=== PATIENT | male | born 1965 | race Caucasian/White ===

== ENCOUNTER 2017-11-30 07:42 | Emergency (ER) | payer BC ==
[2017-11-30 07:46] VITALS: BP 138/81
--- NOTE | 2017-11-30 08:46 | EDM.PDOC ---
ED HPI GENERAL MEDICAL PROBLEM - General Chief Complaint: Eye Problems Stated Complaint: eye pain and swelling Time Seen by Provider: 11/30/17 08:25 - History of Present Illness INITIAL COMMENTS - FREE TEXT/NARRATIVE: Pablo is a 52 year old male who presents to the ED w/ c/o eye redness and swelling. 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 Does report that for some of the time he did not have protective eye wear on. He does report that he did quite a bit of welding, but had a welding helmet on for a majority of it. He reports he woke up about 3 am and his eyes hurt, felt scratchy, and his lids were swollen. He reports sensitivity to light and difficulty opening his eyes. He denies any changes in visual acuity. Reports eyes are very reddened and irritated. He denies noticing any metal or anything entering his eye. He has no other complaints. Onset: Today Onset Date: 11/30/17 Onset Time: 03:00 Duration: Constant Location: Reports: Other (bilateral eyes) Quality: Reports: Ache, Burning Severity: Moderate Improves with: Reports: Cold Therapy Worsens with: Reports: Other (light ) Associated Symptoms: Reports: No Other Symptoms. Denies: Confusion, Chest Pain , Cough, cough w sputum, Diaphoresis, Fever/Chills, Headaches, Loss of Appetite , Malaise, Nausea/Vomiting, Rash, Seizure, Shortness of Breath, Syncope, Weakness Treatments STAFF ATTORNEY: Reports: Cold Therapy Bilateral Eye Pain Score (Numeric/FACES): 6 - Related Data Allergies Allergy/AdvReac Type Severity Reaction Status Date / Time cyclobenzaprine HCl Allergy Nausea Verified 11/30/17 07:48 [From Flexeril] phenylephrine HCl Allergy Tachycardia Verified 11/30/17 07:48 [From Contac-D Cold (PE)] Bee sting Allergy Airway Uncoded 05/29/16 07:01 Tightness Home Meds: Home Meds DULoxetine [Cymbalta] 60 mg PO DAILY 02/09/14 [History] Lisinopril 10 mg PO DAILY 02/09/14 [History] Simvastatin [Zocor] 40 mg PO BEDTIME 02/09/14 [History] rOPINIRole HCl [Requip] 1 mg PO BEDTIME 02/09/14 [History] Aspirin [Halfprin] 81 mg PO DAILY 08/17/14 [History] Dapagliflozin/Metformin HCl [Xigduo Xr 5 mg-1,000 mg Tablet] 2 tab PO DAILY 10/26 [History] Insulin Aspart [NovoLOG] 35 - 55 unit SUBCUT TIDM 08/17/14 [History] Insulin Detemir [Levemir] 45 units SUBCUT DAILY 08/17/14 [History] Naloxegol Oxalate [Movantik] 25 mg PO DAILY 11/30/17 [History] Pregabalin [Lyrica] 150 mg PO TID 11/30/17 [History] Past Medical History Cardiovascular History: Reports: Hypertension Genitourinary History: Reports: Other (See Below) Other Genitourinary History: URETHRAL STRICTURE Musculoskeletal History: Reports: Back Pain, Chronic - Infectious Disease History Infectious Disease History: Reports: MRSA - Past Surgical History Musculoskeletal Surgical History: Reports: Other (See Below) Social & Family History - Family History Family Medical History: Noncontributory - Tobacco Use Smoking Status *Q: Never Smoker - Caffeine Use Caffeine Use: Reports: None - Recreational Drug Use Recreational Drug Use: No - Living Situation & Occupation Living situation: Reports: , with Spouse Occupation: Employed ED ROS GENERAL - Review of Systems Review Of Systems: ROS reveals no pertinent complaints other than HPI. ED EXAM GENERAL W FULL EYE - Physical Exam Exam: See Below Exam Limited By: No Limitations General Appearance: Alert, WD/WN, No Apparent Distress Eye Exam: Bilateral Eye: Conjunctival Injection, EOMI, PERRL Eyelids: Bilateral: Edema Conjunctiva & Sclera: Bilateral: Conjunctival Edema, Injected Cornea Exam: Bilateral: Normal Appearance Extraocular Movements: Bilateral: Intact Pupils: Normal Accommodation Pupillary Size: Bilateral: 4 mm Pupillary Reaction: Bilateral: Brisk Course - Vital Signs Last Recorded V/S: Last Vital Signs Temp 97.0 F 11/30/17 07:42 Pulse 74 11/30/17 07:42 Resp 16 11/30/17 07:42 BP 138/81 11/30/17 07:42 Pulse Ox 94 L 11/30/17 07:42 Departure - Departure Time of Disposition: 08:41 Disposition: Home, Self-Care 01 Condition: Good Clinical Impression: Photokeratitis of both eyes - Discharge Information Instructions: Ultraviolet Keratitis, [id number] Referrals: Sunil,Ania L, PA-C [Primary Care Provider] - Forms: ED Department Discharge Additional Instructions: Lubricating eye drops as needed to keep eyes moisturized (refresh, systane, etc. ). Can use drops or ointment. Tylenol or ibuprofen as needed for pain Keep cool moist cloth on eyes until pain and redness resolves Stay indoors and wear sunglasses to help with light sensitivity Do not rub your eyes No contact lenses Follow up with geological e logger Friday if symptoms have not improved
== END 2017-11-30 08:54 | disposition home or self-care (01) ==
LOC: CC.ED 07:42
DX: H16.133 Photokeratitis, bilateral (principal); I10 Essential (primary) hypertension; Z88.8 Allergy status to other drugs, medicaments and biological substances; Z91.030 Bee allergy status; Z79.899 Other long term (current) drug therapy; Z79.82 Long term (current) use of aspirin; Z86.14 Personal history of Methicillin resistant Staphylococcus aureus infection; Z79.4 Long term (current) use of insulin
CPT/HCPCS: 99282

== ENCOUNTER 2018-06-13 17:14 | Emergency (ER) | payer BC ==
[2018-06-13] MEDS ORDERED: Acetaminophen/HYDROcodone 325-5 MG Tab PO ONE (17:15)
[2018-06-13] MEDS ORDERED: Orphenadrine 100 MG Tab.ER PO ONE (17:15)
[2018-06-13 17:24] VITALS: BP 116/63
--- NOTE | 2018-06-13 17:48 | EDM.PDOC ---
ED HPI GENERAL MEDICAL PROBLEM - General Chief Complaint: Back Pain or Injury Stated Complaint: fell on ice onto a bucket/back pain Time Seen by Provider: 06/13/18 17:24 Source of Information: Reports: Patient History Limitations: Reports: No Limitations - History of Present Illness INITIAL COMMENTS - FREE TEXT/NARRATIVE: slipped and fell onto a bucket and is having pain in the back rib area. He continued to work on his pickup for about an additional 90 minutes before coming in to be evaluated. He states that pain starts in the mid lateral back area where he contacted the bucket and then it radiates upward to the top of his back. No numbness or tingling noted. No weakness to upper or lower extremities. He denies pain to any other area. He denies hitting his head or any neck pain. Onset: Today Location: Reports: Back Quality: Reports: Sharp Worsens with: Reports: Breathing Associated Symptoms: Reports: No Other Symptoms Left Upper Back Pain Score (Numeric/FACES): 6 - Related Data Allergies Allergy/AdvReac Type Severity Reaction Status Date / Time cyclobenzaprine HCl Allergy Nausea Verified 06/13/18 17:25 [From Flexeril] phenylephrine HCl Allergy Tachycardia Verified 06/13/18 17:25 [From Contac-D Cold (PE)] Bee sting Allergy Airway Uncoded 06/13/18 17:25 Tightness Home Meds: Home Meds DULoxetine [Cymbalta] 60 mg PO DAILY 02/09/14 [History] Lisinopril 10 mg PO DAILY 02/09/14 [History] Simvastatin [Zocor] 40 mg PO BEDTIME 02/09/14 [History] rOPINIRole HCl [Requip] 1 mg PO BEDTIME 02/09/14 [History] Aspirin [Halfprin] 81 mg PO DAILY 08/17/14 [History] Dapagliflozin/Metformin HCl [Xigduo Xr 5 mg-1,000 mg Tablet] 2 tab PO DAILY 10/26 [History] Insulin Aspart [NovoLOG] 35 - 55 unit SUBCUT TIDM 08/17/14 [History] Insulin Detemir [Levemir] 45 units SUBCUT DAILY 08/17/14 [History] Naloxegol Oxalate [Movantik] 25 mg PO DAILY 11/30/17 [History] Pregabalin [Lyrica] 150 mg PO TID 11/30/17 [History] Past Medical History Cardiovascular History: Reports: Hypertension Genitourinary History: Reports: Other (See Below) Other Genitourinary History: URETHRAL STRICTURE Musculoskeletal History: Reports: Back Pain, Chronic Endocrine/Metabolic History: Reports: Diabetes, Type II - Infectious Disease History Infectious Disease History: Reports: MRSA - Past Surgical History Musculoskeletal Surgical History: Reports: Other (See Below) Social & Family History - Family History Family Medical History: Noncontributory - Tobacco Use Smoking Status *Q: Never Smoker - Caffeine Use Caffeine Use: Reports: Soda - Recreational Drug Use Recreational Drug Use: No - Living Situation & Occupation Living situation: Reports: , with Spouse Occupation: Employed ED ROS GENERAL - Review of Systems Review Of Systems: See Below Constitutional: Reports: No Symptoms HEENT: Reports: No Symptoms Respiratory: Reports: No Symptoms Cardiovascular: Reports: No Symptoms GI/Abdominal: Reports: No Symptoms Musculoskeletal: Reports: Other (see HPI) Skin: Reports: Bruising (left posterior rib area.) ED EXAM,LOWER BACK PAIN/INJURY - Physical Exam Exam: See Below Exam Limited By: No Limitations General Appearance: Alert, Moderate Distress Head: Atraumatic, Normocephalic Neck: Normal Inspection, Supple, Non-Tender, Full Range of Motion Respiratory/Chest: No Respiratory Distress, Lungs Clear, Normal Breath Sounds Cardiovascular: Regular Rate, Rhythm Back Exam: Other (Tender to the left rib area. Does have red marvel where he contacted the bucket. No open areas noted. Is tender with palpation to the area.) Extremities: Normal Inspection, No Pedal Edema Neurological: Alert, Oriented x 3 Skin Exam: Warm, Dry, Intact Course - Vital Signs Last Recorded V/S: Last Vital Signs Temp 99.3 F 06/13/18 17:22 Pulse 82 06/13/18 17:22 Resp 20 06/13/18 17:22 BP 116/63 06/13/18 17:22 Pulse Ox 97 06/13/18 17:22 - Orders/Labs/Meds Orders: Active Orders 24 hr Category Date Time Status Ribs 2V w Chest Lt [CR] Stat Exams 06/13/18 17:33 Ordered Departure - Departure Time of Disposition: 18:05 Disposition: Home, Self-Care 01 Condition: Good Clinical Impression: Bruised ribs Qualifiers: Encounter type: initial encounter Laterality: left Qualified Code(s): S20.212A - Contusion of left front wall of thorax, initial encounter - Discharge Information *PRESCRIPTION DRUG MONITORING PROGRAM REVIEWED*: No *COPY OF PRESCRIPTION DRUG MONITORING REPORT IN PATIENT CESARIO: No Instructions: Contusion, [id number] Additional Instructions: Norflex 100mg every 12 hours for spasms and pain tylenol or advil every 4 hours as needed for pain. If not relieved then try Morovis 5/325 take 1 tablet every 8 hours as needed for pain Heating pad as needed for comfort. - Problem List & Annotations (1) Bruised ribs SNOMED Code(s): 259872372 Code(s): S20.219A - CONTUSION OF UNSPECIFIED FRONT WALL OF THORAX, INIT ENCNTR Status: Acute Priority: High Current Visit: Yes Qualifiers: Encounter type: initial encounter Laterality: left Qualified Code(s): S20.212A - Contusion of left front wall of thorax, initial encounter - Problem List Review Problem List Initiated/Reviewed/Updated: Yes - My Orders Last 24 Hours: My Active Orders 06/13/18 17:33 Ribs 2V w Chest Lt [CR] Stat - Assessment/Plan Last 24 Hours: My Active Orders 06/13/18 17:33 Ribs 2V w Chest Lt [CR] Stat
[2018-06-13] MEDS ORDERED: Ketorolac 60 MG/2 ML SDV IM ONE (18:01)
[2018-06-13] MEDS ORDERED: Take Home: Orphenadrine 100 MG Tab.ER, 4 Tab Pack PO ONE (18:02)
[2018-06-13] MEDS ORDERED: Take Home: Acetaminophen/HYDROcodone 325-5 MG, 2 Tab Pack PO ONE (18:04)
== END 2018-06-13 18:16 | disposition home or self-care (01) ==
LOC: CC.ED 17:14
DX: S20.212A Contusion of left front wall of thorax, initial encounter (principal); E11.9 Type 2 diabetes mellitus without complications; I10 Essential (primary) hypertension; Z91.030 Bee allergy status; Z88.8 Allergy status to other drugs, medicaments and biological substances; Z79.899 Other long term (current) drug therapy; Z88.6 Allergy status to analgesic agent; Z79.4 Long term (current) use of insulin; W01.10XA Fall on same level from slipping, tripping and stumbling with subsequent striking against unspecified object, initial encounter
CPT/HCPCS: 71101; 96372; 99283; J1885; A9270-GY

== ENCOUNTER 2019-01-22 19:20 | Emergency (ER) | payer BC ==
[2019-01-22] MEDS ORDERED: Acetaminophen 500 MG Tab PO ONE (19:30)
--- NOTE | 2019-01-22 19:30 | EDM.PDOC ---
ED HPI GENERAL MEDICAL PROBLEM - General Chief Complaint: General Stated Complaint: elbow infection Time Seen by Provider: 01/22/19 19:26 Source of Information: Reports: Patient History Limitations: Reports: No Limitations - History of Present Illness INITIAL COMMENTS - FREE TEXT/NARRATIVE: This patient is a 53 year old male that presents to the ER. Patient reports that about 1 week ago he hit his right elbow on the truck door. Patient reports now over the last few days he has had redness and swelling to the open wound area to the right elbow/proximal forearm region. Patient reports that he noticed drainage coming from the open wound yesterday and today. He reports a fever today. Onset Date: 01/15/19 Duration: Week(s): (1) Location: Reports: Upper Extremity, Right Front/Back Body Image: 1 - redness, heat, drainage, swelling. Quality: Reports: Ache Severity: Moderate Improves with: Reports: None Worsens with: Reports: None Associated Symptoms: Reports: Fever/Chills. Denies: Confusion, Chest Pain, Cough, cough w sputum, Diaphoresis, Headaches, Loss of Appetite, Malaise, Nausea /Vomiting, Rash, Seizure, Shortness of Breath, Syncope, Weakness Right Elbow Pain Score (Numeric/FACES): 5 - Related Data Allergies Allergy/AdvReac Type Severity Reaction Status Date / Time cyclobenzaprine HCl Allergy Nausea Verified 01/22/19 19:23 [From Flexeril] phenylephrine HCl Allergy Tachycardia Verified 01/22/19 19:23 [From Contac-D Cold (PE)] Bee sting Allergy Airway Uncoded 06/13/18 17:25 Tightness Home Meds: Home Meds DULoxetine [Cymbalta] 60 mg PO DAILY 02/09/14 [History] Lisinopril 10 mg PO DAILY 02/09/14 [History] Simvastatin [Zocor] 40 mg PO BEDTIME 02/09/14 [History] rOPINIRole HCl [Requip] 1 mg PO BEDTIME 02/09/14 [History] Aspirin [Halfprin] 81 mg PO DAILY 08/17/14 [History] Dapagliflozin/Metformin HCl [Xigduo Xr 5 mg-1,000 mg Tablet] 2 tab PO DAILY 10/26 [History] Insulin Aspart [NovoLOG] 35 - 55 unit SUBCUT TIDM 08/17/14 [History] Insulin Detemir [Levemir] 45 units SUBCUT DAILY 08/17/14 [History] Naloxegol Oxalate [Movantik] 25 mg PO DAILY 11/30/17 [History] Pregabalin [Lyrica] 150 mg PO TID 11/30/17 [History] Past Medical History Cardiovascular History: Reports: Hypertension Genitourinary History: Reports: Other (See Below) Other Genitourinary History: URETHRAL STRICTURE Musculoskeletal History: Reports: Back Pain, Chronic Endocrine/Metabolic History: Reports: Diabetes, Type II - Infectious Disease History Infectious Disease History: Reports: MRSA - Past Surgical History Musculoskeletal Surgical History: Reports: Other (See Below) Social & Family History - Family History Family Medical History: Noncontributory - Caffeine Use Caffeine Use: Reports: Soda - Living Situation & Occupation Living situation: Reports: , with Spouse Occupation: Employed ED ROS GENERAL - Review of Systems Review Of Systems: See Below Constitutional: Reports: Fever, Chills, Diaphoresis HEENT: Reports: No Symptoms Respiratory: Reports: No Symptoms Cardiovascular: Reports: No Symptoms Endocrine: Reports: No Symptoms GI/Abdominal: Reports: No Symptoms : Reports: No Symptoms Musculoskeletal: Reports: Joint Pain (right elbow), Joint Swelling (right elbow) , Other (right upper forearm pain, tenderness, redness, heat, swelling. ) Skin: Reports: Erythema (right forearm/elbow), Wound (right forearm) Neurological: Reports: No Symptoms Psychiatric: Reports: No Symptoms Hematologic/Lymphatic: Reports: No Symptoms Immunologic: Reports: No Symptoms ED EXAM, GENERAL - Physical Exam Exam: See Below Exam Limited By: No Limitations General Appearance: Alert, WD/WN, No Apparent Distress Eye Exam: Bilateral Eye: Normal Inspection, PERRL Ears: Normal External Exam, Normal Canal, Hearing Grossly Normal, Normal TMs Ear Exam: Bilateral Ear: Auricle Normal, Canal Normal, TM normal Nose: Normal Inspection, Normal Mucosa, No Blood Throat/Mouth: Normal Inspection, Normal Lips, Normal Teeth, Normal Gums, Normal Oropharynx, Normal Voice, No Airway Compromise Head: Atraumatic, Normocephalic Neck: Normal Inspection, Supple, Non-Tender, Full Range of Motion Respiratory/Chest: No Respiratory Distress, Lungs Clear, Normal Breath Sounds, No Accessory Muscle Use Cardiovascular: Normal Peripheral Pulses, Regular Rate, Rhythm, No Edema, No Gallop, No JVD, No Murmur, No Rub Peripheral Pulses: 2+: Radial (L), Radial (R) (Male) Exam: Deferred Rectal (Males) Exam: Deferred Back Exam: Normal Inspection, Full Range of Motion Extremities: Joint Swelling (distal elbow.), Limited Range of Motion (due to pain, but is able to flex and extend. ), Increased Warmth (right proximal forearm/distal elbow. ), Redness (Right proximal forearm/distal elbow. ) Neurological: Alert, Oriented, Normal Cognition, Normal Gait, No Motor/Sensory Deficits Psychiatric: Normal Affect, Normal Mood Skin Exam: Warm, Dry, Normal Color, No Rash, Erythema (Right distal elbow/ proximal forearm. ), Wound/Incision (right proximal forearm. Size of dime, open abrasion. Dirty. Blood like drainge from site. ) Lymphatic: No Adenopathy ED GENERAL MEDICAL PROCEDURES - Additional/Other Procedure(s) Other (Free Text) Procedure(s): I&D of the right forearm. Lidocaine 1% used to numb the site, 1ml plain, 28g needle. 11 blade make small incision. purulent pus bloody drainage from the site moderate amount. 4x4 dressings applied, kerlex, caitlin wrap. Culture obtained. No complications. Course - Vital Signs Last Recorded V/S: Last Vital Signs Temp 102.2 F H 01/22/19 20:03 Pulse 97 01/22/19 19:24 Resp 18 01/22/19 19:24 BP 137/66 01/22/19 19:24 Pulse Ox 97 01/22/19 19:24 - Orders/Labs/Meds Orders: Active Orders 24 hr Category Date Time Status Elbow Min 3V Rt [CR] Stat Exams 01/22/19 19:26 Taken CULTURE BLOOD [BC] Stat Lab 01/22/19 19:45 Received CULTURE BLOOD [BC] Stat Lab 01/22/19 19:50 Received CULTURE WOUND [RM] Stat Lab 01/22/19 19:40 Received Clindamycin Phosphate in D5W [Cleocin in D5W] 600 mg Med 01/22/19 20:25 Ordered Premix Bag 1 bag IV ONETIME Sodium Chloride 0.9% [Normal Saline] 1,000 ml Med 01/22/19 20:25 Ordered IV .BOLUS Blood Culture x2 Reflex Set [OM.PC] Stat Oth 01/22/19 19:27 Ordered Medication Orders Clindamycin Phosphate 600 mg/ (Premix) 50 mls @ 100 mls/hr IV ONETIME ONE Stop: 01/22/19 20:54 Sodium Chloride (Normal Saline) 1,000 mls @ 1,000 mls/hr IV .BOLUS ONE Stop: 01/22/19 21:24 Labs: Laboratory Tests 01/22/19 01/22/19 01/22/19 Range/Units 19:45 19:45 19:50 WBC 13.2 H (5.0-10.0) 10^3/uL RBC 4.82 (4.50-6.00) 10^6/uL Hgb 14.9 (14.0-18.0) g/dL Hct 44.8 (40.0-54.0) % MCV 92.9 (82.0-94.0) fL MCH 30.9 (27.0-32.0) pg MCHC 33.3 (33.0-38.0) g/dL RDW Coeff of Flaca 13.2 (11.0-15.0) % Plt Count 259 (150-400) 10^3/uL Neut % (Auto) 75.6 (35-85) % Lymph % (Auto) 14.0 (10-55) % [place] % (Auto) 9.5 (0-16) % Eos % (Auto) 0.7 (0-5) % Baso % (Auto) 0.2 (0-3) % Neut # (Auto) 9.98 H (1.80-7.00) 10^3/uL Lymph # (Auto) 1.85 (1.00-4.80) 10^3/uL [place] # (Auto) 1.25 H (0.00-0.80) 10^3/uL Eos # (Auto) 0.09 (0.00-0.45) 10^3/uL Baso # (Auto) 0.02 10^3/uL Sodium 135 L (136-145) mEq/L Potassium 4.6 (3.5-5.0) mEq/L Chloride 98 (98-106) mEq/L Carbon Dioxide 28 (21-32) mmol/L BUN 20 H (7-18) mg/dL Creatinine 1.1 (0.7-1.3) mg/dL Est Cr Clr Drug Dosing 82.72 mL/min Estimated GFR (MDRD) > 60 (>=60) mL/min Glucose 279 H D (75-99) mg/dL Lactic Acid 1.1 (0.4-2.0) mmol/L Calcium 9.0 (8.4-10.1) mg/dL Total Bilirubin 1.0 (0.0-1.0) mg/dL AST 15 (15-37) U/L ALT 28 (12-78) U/L Alkaline Phosphatase 104 (46-116) U/L C-Reactive Protein 6.7 H (0.2-0.8) mg/dL Total Protein 7.7 (6.4-8.2) g/dL Albumin 3.4 (3.4-5.0) g/dL Meds: Medications Generic Name Dose Route Start Last Admin Trade Name Freq PRN Reason Stop Dose Admin Clindamycin Phosphate 600 mg/ 50 mls @ 100 mls/hr 01/22/19 20:25 Premix IV 01/22/19 20:54 ONETIME ONE Sodium Chloride 1,000 mls @ 1,000 mls/hr 01/22/19 20:25 Normal Saline IV 01/22/19 21:24 .BOLUS ONE Discontinued Medications Generic Name Dose Route Start Last Admin Trade Name Freq PRN Reason Stop Dose Admin Acetaminophen 1,000 mg 01/22/19 19:30 01/22/19 20:03 Tylenol Extra Strength PO 01/22/19 19:31 1,000 mg ONETIME ONE Administration Lidocaine HCl Confirm 01/22/19 19:48 01/22/19 20:05 Xylocaine 1% Administered 01/22/19 19:49 Not Given Dose 20 ml .ROUTE .STK-MED ONE Lidocaine HCl 20 ml 01/22/19 20:04 01/22/19 20:07 Xylocaine-Mpf 1% INJECT 01/22/19 20:05 20 ml NOW STA Administration Departure - Departure Time of Disposition: 20:31 Disposition: Home, Self-Care 01 Condition: Fair Clinical Impression: Abscess - Discharge Information *PRESCRIPTION DRUG MONITORING PROGRAM REVIEWED*: No *COPY OF PRESCRIPTION DRUG MONITORING REPORT IN PATIENT CESARIO: No Instructions: Incision and Drainage, Care After, Skin Abscess, [id number] Referrals: Ania Barber PA-C [Primary Care Provider] - Forms: ED Department Discharge Additional Instructions: Followup with primary care provider Friday for recheck Return to the ER for worsening of condition, redness, worsening of fever, or any concerns at all Wash the area with soap and water Keep clean Clindamycin 300mg 1 pill four times a day for 7 days #28 no refill Motrin and Tylenol for fever - My Orders Last 24 Hours: My Active Orders 01/22/19 19:26 Elbow Min 3V Rt [CR] Stat 01/22/19 19:27 Blood Culture x2 Reflex Set [OM.PC] Stat 01/22/19 19:40 CULTURE WOUND [RM] Stat 01/22/19 19:45 CULTURE BLOOD [BC] Stat 01/22/19 19:50 CULTURE BLOOD [BC] Stat 01/22/19 20:25 Clindamycin Phosphate in D5W [Cleocin in D5W] 600 mg Premix Bag 1 bag IV ONETIME Sodium Chloride 0.9% [Normal Saline] 1,000 ml IV .BOLUS - Assessment/Plan Last 24 Hours: My Active Orders 01/22/19 19:26 Elbow Min 3V Rt [CR] Stat 01/22/19 19:27 Blood Culture x2 Reflex Set [OM.PC] Stat 01/22/19 19:40 CULTURE WOUND [RM] Stat 01/22/19 19:45 CULTURE BLOOD [BC] Stat 01/22/19 19:50 CULTURE BLOOD [BC] Stat 01/22/19 20:25 Clindamycin Phosphate in D5W [Cleocin in D5W] 600 mg Premix Bag 1 bag IV ONETIME Sodium Chloride 0.9% [Normal Saline] 1,000 ml IV .BOLUS Plan: PLEASE SEE RN NOTE FOR PFSH.
[2019-01-22 19:35] VITALS: BP 137/66; PULSE 97
[2019-01-22] MEDS ORDERED: Lidocaine 1% 20 ML MDV ONE (19:48)
[2019-01-22] MEDS ORDERED: Lidocaine 1% 30 ML SDV INJECT STA (20:04)
[2019-01-22 20:08] LABS: CHLORIDE,CL 98 mEq/L (98-106); SODIUM,NA 135 mEq/L (136-145)
[2019-01-22] MEDS ORDERED: Clindamycin Phosphate in D5W 600 MG in Premix Bag 1 BAG IV ONE ×2 (20:25)
[2019-01-22] MEDS ORDERED: Sodium Chloride 0.9% 1,000 ML IV ONE (20:25)
== END 2019-01-22 22:00 | disposition home or self-care (01) ==
LOC: CC.ED 19:20
DX: L02.413 Cutaneous abscess of right upper limb (principal); E11.9 Type 2 diabetes mellitus without complications; I10 Essential (primary) hypertension; Z88.8 Allergy status to other drugs, medicaments and biological substances; Z91.030 Bee allergy status; Z79.899 Other long term (current) drug therapy
CPT/HCPCS: 10060; 36415; 73080; 80053; 83605; 85025; 86140; 87040; 87070; 87077; 87186; 96365; 99283; A4217; A9270; J2001; J3490; J7030

== ENCOUNTER 2020-04-07 20:08 | Emergency (ER) | payer OTHER ==
[2020-04-07] MEDS ORDERED: Acetaminophen/HYDROcodone 325-5 MG Tab PO ONE (20:09)
[2020-04-07 20:22] VITALS: BP 145/70; PULSE 99
--- NOTE | 2020-04-07 20:55 | EDM.PDOC ---
ED HPI GENERAL MEDICAL PROBLEM - General Chief Complaint: General Stated Complaint: WC 1st report of injury right shoulder pain Time Seen by Provider: 04/07/20 20:28 Source of Information: Reports: Patient History Limitations: Reports: No Limitations - History of Present Illness INITIAL COMMENTS - FREE TEXT/NARRATIVE: This patient is a 55 year old male that presents to the ER. 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 Patient reports he landed up against the side with right shoulder. Patient reports having right shoulder pain. Patient denies hitting head, loc, n, v, vision changes, neck pain, back pain, chest pain, shortness of breath, or any other injury complaints. Onset: Today Onset Date: 04/07/20 Onset Time: 14:30 Location: Reports: Upper Extremity, Right Quality: Reports: Ache Severity: Mild Improves with: Reports: Immobilization Worsens with: Reports: Movement Associated Symptoms: Reports: No Other Symptoms. Denies: Confusion, Chest Pain, Cough, cough w sputum, Diaphoresis, Fever/Chills, Headaches, Loss of Appetite, Nausea/Vomiting, Rash, Seizure, Shortness of Breath, Weakness - Related Data Allergies Allergy/AdvReac Type Severity Reaction Status Date / Time cyclobenzaprine HCl Allergy Nausea Verified 04/07/20 20:17 [From Flexeril] phenylephrine HCl Allergy Tachycardia Verified 04/07/20 20:17 [From Contac-D Cold (PE)] Bee sting Allergy Airway Uncoded 04/07/20 20:17 Tightness Home Meds: Home Meds DULoxetine [Cymbalta] 60 mg PO DAILY 02/09/14 [History] Lisinopril 10 mg PO DAILY 02/09/14 [History] Simvastatin [Zocor] 40 mg PO BEDTIME 02/09/14 [History] rOPINIRole HCl [Requip] 1 mg PO BEDTIME 02/09/14 [History] Aspirin [Halfprin] 81 mg PO DAILY 08/17/14 [History] Dapagliflozin/Metformin HCl [Xigduo Xr 5 mg-1,000 mg Tablet] 2 tab PO DAILY 08/17/14 [History] Insulin Aspart [NovoLOG] 35 - 55 unit SUBCUT TIDM 08/17/14 [History] Insulin Detemir [Levemir] 80 units SUBCUT DAILY 08/17/14 [History] Naloxegol Oxalate [Movantik] 25 mg PO DAILY 11/30/17 [History] Pregabalin [Lyrica] 150 mg PO TID 11/30/17 [History] Past Medical History Cardiovascular History: Reports: High Cholesterol, Hypertension Genitourinary History: Reports: Other (See Below) Other Genitourinary History: URETHRAL STRICTURE Musculoskeletal History: Reports: Back Pain, Chronic Other Musculoskeletal History: back surgery 2008 Endocrine/Metabolic History: Reports: Diabetes, Type II - Infectious Disease History Infectious Disease History: Reports: Chicken Pox, Measles - Past Surgical History GI Surgical History: Reports: Appendectomy Musculoskeletal Surgical History: Reports: Other (See Below) Social & Family History - Family History Family Medical History: Noncontributory - Tobacco Use Smoking Status *Q: Never Smoker - Caffeine Use Caffeine Use: Reports: Soda - Recreational Drug Use Recreational Drug Use: No - Living Situation & Occupation Living situation: Reports: , with Spouse Occupation: Employed ED ROS GENERAL - Review of Systems Review Of Systems: See Below Constitutional: Reports: No Symptoms HEENT: Reports: No Symptoms Respiratory: Reports: No Symptoms Cardiovascular: Reports: No Symptoms Endocrine: Reports: No Symptoms GI/Abdominal: Reports: No Symptoms : Reports: No Symptoms Musculoskeletal: Reports: Shoulder Pain (right) Skin: Reports: No Symptoms Neurological: Reports: No Symptoms Psychiatric: Reports: No Symptoms Hematologic/Lymphatic: Reports: No Symptoms Immunologic: Reports: No Symptoms ED EXAM, GENERAL - Physical Exam Exam: See Below Exam Limited By: No Limitations General Appearance: Alert, WD/WN, No Apparent Distress Eye Exam: Bilateral Eye: Normal Inspection, PERRL Ears: Normal External Exam, Normal Canal, Hearing Grossly Normal, Normal TMs Ear Exam: Bilateral Ear: Auricle Normal, Canal Normal, TM normal Nose: Normal Inspection, Normal Mucosa, No Blood Throat/Mouth: Normal Inspection, Normal Lips, Normal Teeth, Normal Gums, Normal Oropharynx, Normal Voice, No Airway Compromise Head: Atraumatic, Normocephalic Neck: Normal Inspection, Supple, Full Range of Motion, Tender Lateral (right lateral near shoulder and posterior trapezius muscle. ), Other (no vetebral pain/tenderness. No step offs. ROM intact. ). No: Limited Range of Motion, Tender Midline Respiratory/Chest: No Respiratory Distress, Lungs Clear, Normal Breath Sounds, No Accessory Muscle Use, Chest Non-Tender Cardiovascular: Normal Peripheral Pulses, Regular Rate, Rhythm, No Edema, No Gallop, No JVD, No Murmur, No Rub Peripheral Pulses: 2+: Radial (L), Radial (R), Posterior Tibial (L), Posterior Tibial (R) GI/Abdominal: Non-Tender Extremities: Normal Inspection, Normal Range of Motion (with pain, but intact.), No Pedal Edema, Normal Capillary Refill, Other (pain, tenderness anterior/posterior right shoulder) Neurological: Alert, Oriented, Normal Cognition, Normal Gait, No Motor/Sensory Deficits Psychiatric: Normal Affect, Normal Mood Skin Exam: Warm, Dry, Normal Color, No Rash, Other (Right anterior shoulder old healing oil burn per patient. Not from this injury.) Course - Vital Signs Last Recorded V/S: Last Vital Signs Temp 98.8 F 04/07/20 20:09 Pulse 99 04/07/20 20:09 Resp 18 04/07/20 20:09 BP 145/70 H 04/07/20 20:09 Pulse Ox 96 04/07/20 20:09 - Orders/Labs/Meds Orders: Active Orders 24 hr Category Date Time Status Cervical Spine 2V or 3V [CR] Stat Exams 04/07/20 21:07 Taken Shoulder Comp Rt [CR] Stat Exams 04/07/20 20:46 Taken Meds: Medications Discontinued Medications Generic Name Dose Route Start Last Admin Trade Name Freq PRN Reason Stop Dose Admin Hydrocodone Bitart/Acetaminophen 3 packet 04/07/20 21:11 Take Home: Acetaminophen/Hydrocod, 2 Tab Pack PO 04/07/20 21:12 ONETIME ONE - Radiology Interpretation Free Text/Narrative:: Right shoulder/Cervical: No fractures, no dislocation. Departure - Departure Time of Disposition: 21:36 Disposition: Home, Self-Care 01 Condition: Fair Clinical Impression: Shoulder sprain Qualifiers: Encounter type: initial encounter Shoulder sprain type: unspecified sprain Lat erality: right Qualified Code(s): S43.401A - Unspecified sprain of right shoulder joint, initial encounter Cervical strain, acute Qualifiers: Encounter type: initial encounter Qualified Code(s): S16.1XXA - Strain of muscle, fascia and tendon at neck level, initial encounter - Discharge Information *PRESCRIPTION DRUG MONITORING PROGRAM REVIEWED*: Not Applicable *COPY OF PRESCRIPTION DRUG MONITORING REPORT IN PATIENT CESARIO: Not Applicable Instructions: How to Use Cold Therapy, [id number], Shoulder Sprain, Cervical Sprain, How to Use a Shoulder Immobilizer Referrals: Ania Barber PA-C [Primary Care Provider] - Forms: ED Department Discharge Additional Instructions: Followup with your primary care provider if pain continues 7-10 days Return to the ER for worsening of condition or any emergent concerns Rest Ice Elevate Arm Sling as needed Motrin for pain as needed over the counter Dendron 5/325mg 1 pill every 6 hours as needed for pain #6 no refill Sepsis Event Note (ED) - Evaluation Sepsis Screening Result: No Definite Risk - Focused Exam Vital Signs: Vital Signs Temp Pulse Resp BP Pulse Ox 04/07/20 20:09 98.8 F 99 18 145/70 H 96 - My Orders Last 24 Hours: My Active Orders 04/07/20 20:46 Shoulder Comp Rt [CR] Stat 04/07/20 21:07 Cervical Spine 2V or 3V [CR] Stat - Assessment/Plan Last 24 Hours: My Active Orders 04/07/20 20:46 Shoulder Comp Rt [CR] Stat 04/07/20 21:07 Cervical Spine 2V or 3V [CR] Stat Plan: PLEASE SEE RN NOTE FOR PFSH.
[2020-04-07] MEDS ORDERED: Take Home: Acetaminophen/HYDROcodone 325-5 MG, 2 Tab Pack PO ONE (21:11)
[2020-04-07] MEDS ORDERED: Take Home: Acetaminophen/HYDROcodone 325-5 MG, 2 Tab Pack ONE (21:38)
== END 2020-04-07 21:56 | disposition home or self-care (01) ==
LOC: CC.ED 20:08
DX: S43.401A Unspecified sprain of right shoulder joint, initial encounter (principal); S16.1XXA Strain of muscle, fascia and tendon at neck level, initial encounter; I10 Essential (primary) hypertension; E78.00 Pure hypercholesterolemia, unspecified; E11.9 Type 2 diabetes mellitus without complications; Z88.8 Allergy status to other drugs, medicaments and biological substances; Z91.030 Bee allergy status; Z79.899 Other long term (current) drug therapy; Z79.82 Long term (current) use of aspirin; V86.55XA Driver of 3- or 4- wheeled all-terrain vehicle (ATV) injured in nontraffic accident, initial encounter; Y92.89 Other specified places as the place of occurrence of the external cause; Y99.0 Civilian activity done for income or pay
CPT/HCPCS: 72040; 73030-RT; 99283; A9270-GY

== ENCOUNTER → 2020-06-23 | Day surgery (SDC) | payer OTHER ==
[~2020-06-23] MED LIST: Ketamine 200 MG/20 ML MDV ONE; Lactated Ringers 1,000 ML IV ONE; Lactated Ringers 1,000 ML IV SCH; Propofol 200 MG/20 ML SDV ONE; fentaNYL 100 MCG/2 ML SDV ONE
[2020-06-23 08:27] VITALS: BP 112/62; PULSE 80
--- NOTE | 2020-06-23 08:57 | OR ---
DATE OF OPERATION: 06/23/2020 PREOPERATIVE DIAGNOSIS: SCREENING COLONOSCOPY. POSTOPERATIVE DIAGNOSIS: SCREENING COLONOSCOPY. SURGEON: Jim Castillo MD PROCEDURE: INCOMPLETE COLONOSCOPY TO APPROXIMATELY THE HEPATIC FLEXURE DUE TO POOR BOWEL PREPARATION. ANESTHESIA: MAC. COMPLICATIONS: None. SPECIMEN: None. FINDINGS: 1. Colonoscopy to approximately the hepatic flexure. 2. Severely poor bowel prep. RECOMMENDATIONS: The patient should have a repeat procedure with a more thorough prep and a longer one as visualization was not adequate to ensure no lesions. INDICATIONS: The patient was recommended to have a screening colonoscopy by Ania Barber. He agreed and proceeded. DESCRIPTION OF PROCEDURE: The patient was prepped and draped and placed in the left lateral decubitus position. A lubricated Olympus colonoscope was inserted, and ultimately, we were able to advance it approximately to the hepatic flexure. The patient had stool throughout, very dark and thick, areas where we could not see anything. Some areas were more liquified, and we could irrigate, but for the most part, visualization was poor, and less than 10% of what we were in was able to be seen. We got to the hepatic flexure, and solid stool was present. We could not proceed past that. Upon withdrawal, no gross or massive lesions were seen, but certainly, smaller lesions absolutely could have been missed. We could not see any obvious diverticula, certainly no mucosal abnormalities given the volume of stool. Retroflexion in the rectum could not be accomplished because of the volume of stool. Air was suctioned as best as possible and the scope removed without complication. BENOIT/ROXANNE /[id number]
== END ==
LOC: CC.SDS 06:57
PROVIDERS: ATTEND Family Medicine
DX: Z12.11 Encounter for screening for malignant neoplasm of colon (principal); I10 Essential (primary) hypertension; G89.29 Other chronic pain; E78.5 Hyperlipidemia, unspecified; E11.9 Type 2 diabetes mellitus without complications; N52.9 Male erectile dysfunction, unspecified; Z01.812 Encounter for preprocedural laboratory examination; Z20.828 Contact with and (suspected) exposure to other viral communicable diseases; Z88.8 Allergy status to other drugs, medicaments and biological substances; Z91.030 Bee allergy status; Z79.82 Long term (current) use of aspirin; Z79.899 Other long term (current) drug therapy; Z98.890 Other specified postprocedural states
CPT/HCPCS: 00812; 82962; J2704; J3010; J7120

== ENCOUNTER → 2020-07-13 | Day surgery (SDC) | payer OTHER ==
[~2020-07-13] MED LIST changes: -Lactated Ringers 1,000 ML IV ONE; -Lactated Ringers 1,000 ML IV SCH
[2020-07-13] MEDS: Lactated Ringers 1,000 ML IV SCH (08:29)
[2020-07-13 10:20] VITALS: BP 97/48; PULSE 71
--- NOTE | 2020-07-13 10:56 | OR ---
DATE OF OPERATION: 07/13/2020 PREOPERATIVE DIAGNOSIS: HISTORY OF POLYPS. POSTOPERATIVE DIAGNOSIS: HISTORY OF POLYPS. SURGEON: Jim Castillo MD PROCEDURE: DIAGNOSTIC COLONOSCOPY. ANESTHESIA: MAC. COMPLICATIONS: None. SPECIMEN: None. FINDINGS: 1. Essentially normal full-length colonoscopy. 2. Marginal prep. RECOMMENDATIONS: Followup colonoscopy in 5 years. INDICATIONS: The patient has a prior history of polyps. We did try a colonoscopy on him recently and his prep was too poor to consider it adequate. Today's prep was better, albeit not wonderful, but certainly most lesions would have been seen. DESCRIPTION OF PROCEDURE: The patient was prepped and draped, placed in the left lateral decubitus position. A lubricated Olympus colonoscope was inserted and with ease advanced to the cecum. The cecal pouch had a lot of stool present. We irrigated multiple times, could not definitely see the appendiceal orifice, but could see the back of the valve and it was hard to see into the cecal pouch itself. Upon withdrawal, the patient does have stool throughout most of the colon. Most of this was liquid and able to be irrigated and suctioned, some not. Overall, about 85% of the colon was adequately visualized. Throughout the length of the colon, I could find no polyps, masses, ulceration, or bleeding sites. No vascular abnormalities or signs of colitis. There were no significant diverticula. The rectal vault was benign. A lot of stool was present in the rectal vault as well, but retroflexion was accomplished and no perianal lesions were seen. Air was suctioned and scope removed without complication. BENOIT/ROXANNE /[id number]
== END ==
LOC: CC.SDS 08:17
PROVIDERS: ATTEND Family Medicine
DX: Z12.11 Encounter for screening for malignant neoplasm of colon (principal); I10 Essential (primary) hypertension; E11.9 Type 2 diabetes mellitus without complications; Z79.4 Long term (current) use of insulin; Z01.812 Encounter for preprocedural laboratory examination; Z20.828 Contact with and (suspected) exposure to other viral communicable diseases; Z86.010 Personal history of colon polyps; Z88.8 Allergy status to other drugs, medicaments and biological substances; Z91.030 Bee allergy status; Z79.899 Other long term (current) drug therapy; Z79.82 Long term (current) use of aspirin; Z98.890 Other specified postprocedural states
CPT/HCPCS: 00811; 82962; J2704; J3010; J7120

== ENCOUNTER 2020-09-29 11:53 | Emergency (ER) | payer OTHER ==
[2020-09-29 12:03] VITALS: BP 135/61; PULSE 67
--- NOTE | 2020-09-29 12:55 | EDM.PDOC ---
ED HPI GENERAL MEDICAL PROBLEM - General Chief Complaint: Back Pain or Injury Stated Complaint: BACK PAIN Time Seen by Provider: 09/29/20 12:26 Source of Information: Reports: Patient History Limitations: Reports: No Limitations - History of Present Illness INITIAL COMMENTS - FREE TEXT/NARRATIVE: Pablo is a 55 year old male who presents to the ED with c/o right low back pain that radiates to his right hip/groin. 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 He reports he did go to the chiropractor yesterday without improvement. Does have chronic low back issues and is scheduled for a steroid injection on Friday, but reports pain was too much to bear. Rates pain 02/20. Denies any loss of bowel/bladder. Denies any numbness or tingling. No other complaints. Patient sleeping on cot on left side in no acute distress. Onset Date: 09/27/20 Duration: Constant Location: Reports: Back Quality: Reports: Sharp, Throbbing Severity: Severe Improves with: Reports: Medication Worsens with: Reports: Movement Context: Reports: Activity Associated Symptoms: Reports: No Other Symptoms Right Hip Pain Score (Numeric/FACES): 8 - Related Data Allergies Allergy/AdvReac Type Severity Reaction Status Date / Time cyclobenzaprine HCl Allergy Nausea Verified 09/29/20 11:57 [From Flexeril] phenylephrine HCl Allergy Tachycardia Verified 09/29/20 11:57 [From Contac-D Cold (PE)] Bee sting Allergy Airway Uncoded 09/29/20 11:57 Tightness Home Meds: Home Meds DULoxetine [Cymbalta] 60 mg PO DAILY 02/09/14 [History] Lisinopril 10 mg PO DAILY 02/09/14 [History] Simvastatin [Zocor] 40 mg PO BEDTIME 02/09/14 [History] rOPINIRole HCl [Requip] 2 mg PO BEDTIME 02/09/14 [History] Aspirin [Halfprin] 81 mg PO DAILY 08/17/14 [History] Pregabalin [Lyrica] 150 mg PO BID 11/30/17 [History] Linaclotide [Linzess] 290 mcg PO DAILY 06/16/20 [History] EPINEPHrine [Epipen 2-Bird] 1 injection SQ ASDIRECTED PRN 07/03/20 [History] Insulin Aspart [NovoLOG] 50 units SQ 0800,1200,1730 07/03/20 [History] Baclofen 20 mg PO TID PRN #30 tablet 09/29/20 [Rx] Insulin Degludec [Tresiba] 80 units SQ BEDTIME 09/29/20 [History] metFORMIN HCl [Metformin HCl] 1,000 mg PO BID 09/29/20 [History] Past Medical History Cardiovascular History: Reports: High Cholesterol, Hypertension Genitourinary History: Reports: Other (See Below) Other Genitourinary History: URETHRAL STRICTURE Musculoskeletal History: Reports: Back Pain, Chronic Other Musculoskeletal History: back surgery 2008 Endocrine/Metabolic History: Reports: Diabetes, Type II - Infectious Disease History Infectious Disease History: Reports: Chicken Pox, Measles - Past Surgical History GI Surgical History: Reports: Appendectomy, Other (See Below) Other GI Surgeries/Procedures: rectal surgery Musculoskeletal Surgical History: Reports: Other (See Below) Other Musculoskeletal Surgeries/Procedures:: BACK SURGERY Social & Family History - Family History Family Medical History: No Pertinent Family History - Tobacco Use Tobacco Use Status *Q: Never Tobacco User - Caffeine Use Caffeine Use: Reports: Soda - Recreational Drug Use Recreational Drug Use: No - Living Situation & Occupation Living situation: Reports: , with Spouse Occupation: Employed ED ROS GENERAL - Review of Systems Review Of Systems: Comprehensive ROS is negative, except as noted in HPI. ED EXAM,LOWER BACK PAIN/INJURY - Physical Exam Exam: See Below Exam Limited By: No Limitations General Appearance: Alert, WD/WN, No Apparent Distress Cardiovascular: Normal Peripheral Pulses Back Exam: Full Range of Motion, Muscle Spasm (right L4-5), Other (tenderness to right SI). No: Decreased Range of Motion, Paraspinal Tenderness, Vertebral Tenderness Extremities: Normal Inspection, Normal Range of Motion, Non-Tender, No Pedal Edema, Normal Capillary Refill Neurological: Alert, Normal Mood/Affect, Normal Dorsiflexion, CN II-XII Intact, Normal Plantar Flexion, Normal Gait, Normal Reflexes, No Motor/Sensory Deficits, Oriented x 3 Course - Vital Signs Last Recorded V/S: Last Vital Signs Temp 96.4 F L 09/29/20 11:57 Pulse 67 09/29/20 11:57 Resp 18 09/29/20 11:57 BP 135/61 09/29/20 11:57 Pulse Ox 97 09/29/20 11:57 Departure - Departure Time of Disposition: 12:41 Disposition: Home, Self-Care 01 Condition: Fair Clinical Impression: Low back pain radiating to right leg - Discharge Information *PRESCRIPTION DRUG MONITORING PROGRAM REVIEWED*: Yes *COPY OF PRESCRIPTION DRUG MONITORING REPORT IN PATIENT CESARIO: Yes Prescriptions: Baclofen 20 mg PO TID PRN #30 tablet PRN Reason: Muscle Spasm Referrals: Ania Barber PA-C [Primary Care Provider] - Forms: ED Department Discharge Additional Instructions: - Referral to PT - Baclofen three times daily as needed for low back pain/spasm - Ice/heat to affected area as needed - Tylenol or ibuprofen as needed - Scheduled injection on Friday - Follow up with PCP for recheck if symptoms worsen or do not improve Sepsis Event Note (ED) - Evaluation Sepsis Screening Result: No Definite Risk - Problem List & Annotations (1) Low back pain radiating to right leg SNOMED Code(s): 785065344, 652225962 Code(s): M54.5 - LOW BACK PAIN Status: Acute - Assessment/Plan Plan: As above.
== END 2020-09-29 12:50 | disposition home or self-care (01) ==
LOC: CC.ED 11:53 → SUPCPDRO 11:53 → CC.ED 12:50
DX: M54.41 Lumbago with sciatica, right side (principal); E78.00 Pure hypercholesterolemia, unspecified; I10 Essential (primary) hypertension; E11.9 Type 2 diabetes mellitus without complications; Z88.8 Allergy status to other drugs, medicaments and biological substances; Z91.030 Bee allergy status; Z79.82 Long term (current) use of aspirin; Z79.4 Long term (current) use of insulin; Z79.899 Other long term (current) drug therapy
CPT/HCPCS: 72100; 99283

== ENCOUNTER 2021-05-22 16:28 | Observation (INO) | payer OTHER ==
[2021-05-22 16:55] LABS: CHLORIDE,CL 99 mEq/L (98-106); SODIUM,NA 137 mEq/L (136-145)
[2021-05-22] MEDS ORDERED: Acetaminophen 325 MG Tab PO PRN (17:51)
[2021-05-22] MEDS ORDERED: Baclofen 10 MG Tab PO PRN (18:00)
[2021-05-22] MEDS ORDERED: OXYCODONE 5 MG PO PRN (18:00)
[2021-05-22] MEDS: Docusate Sodium 100 MG Cap PO SCH ×2 (18:03→19:46)
[2021-05-22] MEDS: Sodium Chloride 0.9% 1,000 ML IV SCH (18:16)
[2021-05-22] MEDS: cefTRIAXone 2 GM Vial IVPUSH SCH (18:28)
[2021-05-22] MEDS: Insulin Lispro 100 Units/ML 3 ML Vial SUBCUT SCH (18:30)
[2021-05-22] MEDS ORDERED: Insulin Lispro 100 Units/ML 3 ML Vial ONE (19:05)
[2021-05-22] MEDS: Insulin Glarg,Human.Rec.Analog 100 Unit/ML SUBCUT SCH (19:47)
[2021-05-22] MEDS ORDERED: SIMVASTATIN 40 MG PO SCH (20:00)
[2021-05-22] MEDS ORDERED: ROPINIROLE 2 MG PO SCH (20:00)
[2021-05-22] MEDS: PREGABALIN 150 MG PO SCH (21:35)
[2021-05-22] MEDS: METFORMIN 500 MG PO SCH (21:36)
[2021-05-23] MEDS: Sodium Chloride 0.9% 1,000 ML IV SCH (02:15)
[2021-05-23] MEDS: Docusate Sodium 100 MG Cap PO SCH ×2 (08:08→19:49)
[2021-05-23] MEDS: METFORMIN 500 MG PO SCH ×3 (08:28→17:41)
[2021-05-23] MEDS: Insulin Lispro 100 Units/ML 3 ML Vial SUBCUT SCH ×3 (08:37→17:32)
[2021-05-23] MEDS: PREGABALIN 150 MG PO SCH ×3 (08:40→20:00)
[2021-05-23] MEDS: OXYCODONE 5 MG PO PRN ×2 (08:41→20:00)
[2021-05-23] MEDS ORDERED: Enoxaparin 40 MG/0.4 ML Syringe SUBCUT SCH (16:00)
[2021-05-23] MEDS: cefTRIAXone 2 GM Vial IVPUSH SCH (17:45)
[2021-05-23] MEDS: Insulin Glarg,Human.Rec.Analog 100 Unit/ML SUBCUT SCH (19:59)
[2021-05-23] MEDS ORDERED: ROPINIROLE 2 MG PO SCH (20:00)
[2021-05-23] MEDS ORDERED: SIMVASTATIN 40 MG PO SCH (20:00)
--- NOTE | 2021-05-24 07:25 | PCM.PN ---
- General Info Date of Service: 05/23/21 Subjective Update: Pablo is a 56 yo male who was admitted to the hospital yesterday with complaints of abdominal pain. Had recently had back surgery and still had the marcelo in place. Dr. Castillo seen patient in clinic and did note patient was running a fever. Patient was admitted to the hospital with possible concerns of a cellulitis to the incision site and further work up of abdominal pain. X-ray of the abdomen did not show any sign of obstruction. Moderate amount of stool w as present. Pablo states today he is feeling better. Continues to have some right sided abdominal pain. Patient has had previous appendectomy. He denies any bowel movements since admit. States he is able to pass gas. No further fevers this morning. Functional Status: Reports: Pain Controlled, Tolerating Diet, Ambulating, Urinating - Review of Systems General: Denies: Fever, Weakness, Fatigue HEENT: Reports: No Symptoms Pulmonary: Reports: No Symptoms Cardiovascular: Reports: No Symptoms Gastrointestinal: Reports: Abdominal Pain, Constipation. Denies: Nausea, Vomiting Genitourinary: Reports: No Symptoms Musculoskeletal: Reports: Back Pain Neurological: Reports: No Symptoms Psychiatric: Reports: No Symptoms - Patient Data Vitals - Most Recent: Last Vital Signs Temp 97.5 F 05/24/21 04:00 Pulse 70 05/24/21 04:00 Resp 20 05/24/21 04:00 BP 116/50 L 05/24/21 04:00 Pulse Ox 93 L 05/24/21 04:00 Weight - Most Recent: 304 lb 14.4 oz Lab Results Last 24 Hours: Laboratory Results - last 24 hr 05/23/21 05/23/21 05/23/21 Range/Units 07:15 07:15 08:05 WBC 9.3 (4.0-11.0) 10^3/uL RBC 4.30 L (4.50-6.00) x10^6/uL Hgb 12.7 L (14.0-18.0) g/dL Hct 39.4 L (42.0-52.0) % MCV 91.6 (83.0-97.0) fL MCH 29.5 (27.0-32.0) pg MCHC 32.2 (32.0-36.0) g/dL RDW Coeff of Flaca 13.5 (11.0-15.0) % Plt Count 296 (150-400) 10^3/uL Immature Gran % (Auto) 0.2 (0.0-4.9) % Neut % (Auto) 66.8 (41-71) % Lymph % (Auto) 18.2 L (24-44) % Garden % (Auto) 11.7 H (0-10) % Eos % (Auto) 2.8 (0-6) % Baso % (Auto) 0.3 (0-1) % Neut # (Auto) 6.23 (1.80-8.00) x10^3/uL Lymph # (Auto) 1.70 (0.60-5.00) 10^3/uL Garden # (Auto) 1.09 (0.00-1.50) 10^3/uL Eos # (Auto) 0.26 (0.00-1.50) 10^3/uL Baso # (Auto) 0.03 (0.00-0.50) 10^3/uL Immature Gran # (Auto) 0.02 (0.00-0.49) 10^3/uL POC Glucose 163 H (75-105) mg/dL C-Reactive Protein 6.1 H (0.2-0.8) mg/dL 05/23/21 05/23/21 05/23/21 Range/Units 12:27 16:54 19:57 WBC (4.0-11.0) 10^3/uL RBC (4.50-6.00) x10^6/uL Hgb (14.0-18.0) g/dL Hct (42.0-52.0) % MCV (83.0-97.0) fL MCH (27.0-32.0) pg MCHC (32.0-36.0) g/dL RDW Coeff of Flaca (11.0-15.0) % Plt Count (150-400) 10^3/uL Immature Gran % (Auto) (0.0-4.9) % Neut % (Auto) (41-71) % Lymph % (Auto) (24-44) % Garden % (Auto) (0-10) % Eos % (Auto) (0-6) % Baso % (Auto) (0-1) % Neut # (Auto) (1.80-8.00) x10^3/uL Lymph # (Auto) (0.60-5.00) 10^3/uL Garden # (Auto) (0.00-1.50) 10^3/uL Eos # (Auto) (0.00-1.50) 10^3/uL Baso # (Auto) (0.00-0.50) 10^3/uL Immature Gran # (Auto) (0.00-0.49) 10^3/uL POC Glucose 173 H 97 160 H (75-105) mg/dL C-Reactive Protein (0.2-0.8) mg/dL Fernando Results Last 24 Hours: Microbiology 05/22/21 18:23 Aerobic Blood Culture - Preliminary Blood - Venous NO GROWTH AFTER 1 DAY Anaerobic Blood Culture - Preliminary NO GROWTH AFTER 1 DAY 05/22/21 18:23 Aerobic Blood Culture - Preliminary Blood - Venous - Lab Draw NO GROWTH AFTER 1 DAY Anaerobic Blood Culture - Preliminary NO GROWTH AFTER 1 DAY Med Orders - Current: Current Medications Acetaminophen (Acetaminophen 325 Mg Tab) 650 mg PO Q4H PRN PRN Reason: Pain (Mild 1-3)/fever Last Admin: 05/22/21 18:03 Dose: 650 mg Documented by: Ceftriaxone Sodium (Ceftriaxone 2 Gm Vial) 2 gm IVPUSH Q24H [facility] Last Admin: 05/23/21 17:45 Dose: 2 gm Documented by: Docusate Sodium (Docusate Sodium 100 Mg Cap) 100 mg PO BID [facility] Last Admin: 05/23/21 19:49 Dose: 100 mg Documented by: Enoxaparin Sodium (Enoxaparin 40 Mg/0.4 Ml Syringe) 40 mg SUBCUT Q24H [facility] Last Admin: 05/23/21 16:45 Dose: 40 mg Documented by: Insulin Glargine (Insulin Glarg,Human.Rec.Analog 100 Unit/Ml) 80 unit SUBCUT BEDTIME [facility] Last Admin: 05/23/21 19:59 Dose: 80 units Documented by: Insulin Human Lispro (Insulin Lispro 100 Units/Ml 3 Ml Vial) 45 unit SUBCUT TIDMEALS [facility] Last Admin: 05/23/21 17:32 Dose: 45 units Documented by: Lisinopril (Lisinopril 10 Mg Tab Ptom) 10 mg PO DAILY [facility] Last Admin: 05/23/21 08:48 Dose: 10 mg Documented by: Duloxetine 60mg Cap (Ptom) 0 each PO DAILY [facility] Last Admin: 05/23/21 08:47 Dose: 1 each Documented by: Pregabalin 150 Mg (Cap Own Med) 0 mg PO BID [facility] Last Admin: 05/23/21 20:00 Dose: 150 mg Documented by: Oxycodone 5 Mg Own Med Controll Ii Med 0 mg PO Q4H PRN PRN Reason: Pain Last Admin: 05/23/21 20:00 Dose: 5 mg Documented by: Metformin 500mg Er (Tabs Own Med) 0 each PO BIDMEALS [facility] Last Admin: 05/23/21 17:41 Dose: 2 each Documented by: Ropinirole 2mg Tab (Own Med) 0 each PO BEDTIME [facility] Last Admin: 05/23/21 19:51 Dose: 1 each Documented by: Simvastatin 40mg Tab (Own Med) 0 each PO BEDTIME [facility] Last Admin: 05/23/21 19:52 Dose: 1 each Documented by: Discontinued Medications Baclofen (Baclofen 10 Mg Tab) 10 mg PO TID PRN PRN Reason: Muscle Spasm - Painful Sodium Chloride (Normal Saline) 1,000 mls @ 125 mls/hr IV ASDIRECTED [facility] Last Admin: 05/23/21 02:15 Dose: 125 mls/hr Documented by: Insulin Human Lispro (Insulin Lispro 100 Units/Ml 3 Ml Vial) Confirm Administered Dose 300 unit .ROUTE .STK-MED ONE Stop: 05/22/21 19:06 Last Admin: 05/22/21 19:05 Dose: Not Given Documented by: Oxycodone 5 Mg Own Med Controll Ii Med 0 mg PO Q4H PRN PRN Reason: Pain Last Admin: 05/22/21 22:00 Dose: 5 mg Documented by: Pregabalin 150 Mg (Cap Own Med) 0 mg PO BID [facility] Last Admin: 05/23/21 08:41 Dose: Not Given Documented by: Metformin 500mg Er (Tabs Own Med) 0 each PO BIDMEALS [facility] Last Admin: 05/23/21 08:42 Dose: Not Given Documented by: Ropinirole 2mg Tab (Own Med) 0 each PO BEDTIME [facility] Last Admin: 05/22/21 21:37 Dose: 1 each Documented by: Simvastatin 40mg Tab (Own Med) 0 each PO BEDTIME [facility] Last Admin: 05/22/21 21:38 Dose: 1 each Documented by: - Exam General: Alert, Oriented, Cooperative, No Acute Distress Lungs: Clear to Auscultation, Normal Respiratory Effort Cardiovascular: Regular Rate, Regular Rhythm, No Murmurs GI/Abdominal Exam: Soft, No Organomegaly, Tender (RUQ), Abnormal Bowel Sounds (hypoactive). No: Distended, Guarding, Rigid Extremities: Normal Inspection Wound/Incisions: Healing Well, Erythema Improving Psy/Mental Status: Alert, Normal Affect, Normal Mood - Patient Data Lab Results Last 24 hrs: Laboratory Results - last 24 hr 05/23/21 05/23/21 05/23/21 Range/Units 07:15 07:15 08:05 WBC 9.3 (4.0-11.0) 10^3/uL RBC 4.30 L (4.50-6.00) x10^6/uL Hgb 12.7 L (14.0-18.0) g/dL Hct 39.4 L (42.0-52.0) % MCV 91.6 (83.0-97.0) fL MCH 29.5 (27.0-32.0) pg MCHC 32.2 (32.0-36.0) g/dL RDW Coeff of Flaca 13.5 (11.0-15.0) % Plt Count 296 (150-400) 10^3/uL Immature Gran % (Auto) 0.2 (0.0-4.9) % Neut % (Auto) 66.8 (41-71) % Lymph % (Auto) 18.2 L (24-44) % Garden % (Auto) 11.7 H (0-10) % Eos % (Auto) 2.8 (0-6) % Baso % (Auto) 0.3 (0-1) % Neut # (Auto) 6.23 (1.80-8.00) x10^3/uL Lymph # (Auto) 1.70 (0.60-5.00) 10^3/uL Garden # (Auto) 1.09 (0.00-1.50) 10^3/uL Eos # (Auto) 0.26 (0.00-1.50) 10^3/uL Baso # (Auto) 0.03 (0.00-0.50) 10^3/uL Immature Gran # (Auto) 0.02 (0.00-0.49) 10^3/uL POC Glucose 163 H (75-105) mg/dL C-Reactive Protein 6.1 H (0.2-0.8) mg/dL 05/23/21 05/23/21 05/23/21 Range/Units 12:27 16:54 19:57 WBC (4.0-11.0) 10^3/uL RBC (4.50-6.00) x10^6/uL Hgb (14.0-18.0) g/dL Hct (42.0-52.0) % MCV (83.0-97.0) fL MCH (27.0-32.0) pg MCHC (32.0-36.0) g/dL RDW Coeff of Flaca (11.0-15.0) % Plt Count (150-400) 10^3/uL Immature Gran % (Auto) (0.0-4.9) % Neut % (Auto) (41-71) % Lymph % (Auto) (24-44) % Garden % (Auto) (0-10) % Eos % (Auto) (0-6) % Baso % (Auto) (0-1) % Neut # (Auto) (1.80-8.00) x10^3/uL Lymph # (Auto) (0.60-5.00) 10^3/uL Garden # (Auto) (0.00-1.50) 10^3/uL Eos # (Auto) (0.00-1.50) 10^3/uL Baso # (Auto) (0.00-0.50) 10^3/uL Immature Gran # (Auto) (0.00-0.49) 10^3/uL POC Glucose 173 H 97 160 H (75-105) mg/dL C-Reactive Protein (0.2-0.8) mg/dL Result Diagrams: 05/23/21 07:15 05/22/21 16:36 Fernando Results Last 24 hrs: Microbiology 05/22/21 18:23 Aerobic Blood Culture - Preliminary Blood - Venous NO GROWTH AFTER 1 DAY Anaerobic Blood Culture - Preliminary NO GROWTH AFTER 1 DAY 05/22/21 18:23 Aerobic Blood Culture - Preliminary Blood - Venous - Lab Draw NO GROWTH AFTER 1 DAY Anaerobic Blood Culture - Preliminary NO GROWTH AFTER 1 DAY Sepsis Event Note - Evaluation Sepsis Screening Result: Possible Sepsis Risk - Focused Exam Vital Signs: Vital Signs Temp Pulse Resp BP Pulse Ox 05/24/21 04:00 97.5 F 70 20 116/50 L 93 L 05/24/21 00:00 96.5 F L 74 18 128/47 L 91 L 05/23/21 20:00 97.4 F 81 20 133/61 92 L - Problem List & Annotations (1) Abdominal pain SNOMED Code(s): 41545772 Code(s): R10.9 - UNSPECIFIED ABDOMINAL PAIN Status: Acute Current Visit: Yes (2) Fever SNOMED Code(s): 292868990 Code(s): R50.9 - FEVER, UNSPECIFIED Status: Acute Current Visit: Yes (3) Constipation SNOMED Code(s): 04143526 Code(s): K59.00 - CONSTIPATION, UNSPECIFIED Status: Acute Current Visit: Yes Qualifiers: Constipation type: chronic idiopathic constipation Qualified Code(s): K59.04 - Chronic idiopathic constipation - Problem List Review Problem List Initiated/Reviewed/Updated: Yes - My Orders Last 24 Hours: My Active Orders 05/23/21 08:59 Abdomen Ltd [US] Routine 05/23/21 16:00 Enoxaparin [Lovenox] 40 mg SUBCUT Q24H - Plan Plan:: Will get RUQ ultrasound today. Continue with Colace. Patient would like to start lactulose as in the past is was the only thing to help. Will stop IV fluids t jazmine as patient is drinking well. Discussed with Pablo once able to have a bowel movement will look at discharge home.
[2021-05-24] MEDS: Docusate Sodium 100 MG Cap PO SCH (07:43)
[2021-05-24] MEDS: METFORMIN 500 MG PO SCH (07:47)
[2021-05-24] MEDS: PREGABALIN 150 MG PO SCH (07:50)
[2021-05-24] MEDS: Insulin Lispro 100 Units/ML 3 ML Vial SUBCUT SCH ×2 (07:53→12:03)
[2021-05-24 08:07] LABS: CHLORIDE,CL 101 mEq/L (98-106); SODIUM,NA 140 mEq/L (136-145)
[2021-05-24] MEDS ORDERED: Bisacodyl 10 MG Supp RECTAL ONE (10:59)
[2021-05-24 11:26] VITALS: BP 142/74; PULSE 75
--- NOTE | 2021-05-24 12:59 | PN ---
DATE: 05/24/2021 S: Pablo was admitted Friday for postop wound infection. He has done very well from infectious disease standpoint. He has been afebrile and wound on his back looks markedly better. He continues to have poor bowel movements from his pain pills and we have been giving him Colace and he is yet to have stool, though he is passing gas. O: GENERAL: He is clinically stable. VITAL SIGNS: Afebrile. NECK: His neck veins are nondistended. LUNGS: Clear. CARDIAC: Tones are regular. ABDOMEN: Obese, slightly distended, but he has bowel sounds in all quadrants. He is not tender to palpation that I can appreciate. BACK: The incision on his lumbar spine is markedly improved with minimal redness and no further calor. ASSESSMENT: 1. POSTOP WOUND INFECTION. 2. POSTOP CONSTIPATION. P: We will give him a Dulcolax suppository. I expect him to go home later if he can start moving his bowels. BENOIT/ROXANNE /[id number]
--- NOTE | 2021-05-24 20:15 | DISCH ---
ADMISSION DIAGNOSES: 1. Postoperative wound infection. 2. Abdominal pain. 3. Constipation. 4. Diabetes. 5. Hypertension. DISCHARGE DIAGNOSIS: 1. POSTOPERATIVE WOUND INFECTION. 2. ABDOMINAL PAIN. 3. CONSTIPATION. 4. DIABETES. 5. HYPERTENSION. HISTORY: The patient is a 56-year-old, about five days status post lumbar disk surgery. He presented with some redness around his op site and fevers, also having a lot of abdominal pain and constipation. He was evaluated in the clinic, where he had an elevated white count and CRP. His wound showed signs of some wound infection. No drainage could be elicited, but there was redness and erythema. He had no signs of an acute abdomen, but his x-ray showed a lot of stool. We elected to put him in the hospital for IV antibiotics and initiation of a bowel program. HOSPITAL COURSE: The patient did well while here. He basically has not ran any fever since admission. His wound looks much better. He is having almost complete resolution of calor, there is minimal erythema now surrounding the wound, and for the most part he has not had any trouble. He was on IV Rocephin. We will send him home on an outpatient course of Keflex. He is moving gas and has had a few small harder stools today. Early this morning, on the date of discharge, he had one small stool. We did give an enema as well, and he had a little bit of result. He denies any abdominal pain at this time. He has good bowel sounds, and we will put him on some lactulose at home, which he has used in the past from his chronic pain doctor, and see how he resolves. DISCHARGE INSTRUCTIONS: The patient is given instructions for followup with Ania Barber on Friday his primary for a recheck. COMPLICATIONS: During his stay were none. CONSULTATIONS: None. DISPOSITION: Discharged home. LEEL /[id number]
== END 2021-05-24 16:37 | disposition home or self-care (01) ==
LOC: CC.MS 16:28 → CC.FCMC 16:28 → UNDOADMOB 17:19 → CC.MS 17:19
PROVIDERS: ADMIT Family Medicine; ATTEND Family Medicine
DX: T81.49XA Infection following a procedure, other surgical site, initial encounter (principal); G89.18 Other acute postprocedural pain; R10.9 Unspecified abdominal pain; R50.9 Fever, unspecified; K59.00 Constipation, unspecified; I10 Essential (primary) hypertension; Z79.899 Other long term (current) drug therapy; Z90.49 Acquired absence of other specified parts of digestive tract; Z98.890 Other specified postprocedural states
CPT/HCPCS: 36415; 74022; 76705; 80053; 81001; 82150; 82947; 83605; 83690; 84484; 85025; 86140; 87040; 96372; 96374; 96376; A9270-GY; G0378; J0696; J1650; J1815-GY; J7030

== ENCOUNTER 2021-07-08 11:42 | Emergency (ER) | payer OTHER ==
[2021-07-08 11:57] VITALS: BP 156/80; PULSE 68
--- NOTE | 2021-07-08 12:29 | EDM.PDOC ---
ED HPI GENERAL MEDICAL PROBLEM - General Chief Complaint: General Stated Complaint: back pain Time Seen by Provider: 07/08/21 12:00 Source of Information: Reports: Patient History Limitations: Reports: No Limitations - History of Present Illness INITIAL COMMENTS - FREE TEXT/NARRATIVE: This is a 56 year old male that presents to the ED with continued back pain. Patient states pain has changed and now radiates to his testicles. Had a back surgery revision in early May and an initial surgery in December. States his hardware had loosened which is why he had a second surgery. His pain was tolerable up to about June 06 in which he began having lower back pain again that radiated to the left buttock area. That pain has continued since that time. Now for about the last 3 days he reports pain now radiates to both testicles. Denies difficulty with urinating or bowel movements. Denies blood in his urine. Denies any recent illness, fever, SOB, chills, nausea, vomiting, or diarrhea. Has had an occasional cough which he states he normally has this time of year and is not unusual. Take prescribed pain medication reporting that his pain has been 6/10 for the past several weeks. Onset: Gradual Duration: Week(s): (4) Location: Reports: Back Quality: Reports: Same as Previous Episode Severity: Moderate Improves with: Reports: None Worsens with: Reports: None Associated Symptoms: Reports: Other (bilateral testicular pain) Treatments DIGITAL ENGINEER: Reports: NSAIDS, Other (see below) Other Treatments DIGITAL ENGINEER: oxycodone Lower Back Pain Score (Numeric/FACES): 6 - Related Data Allergies Allergy/AdvReac Type Severity Reaction Status Date / Time cyclobenzaprine HCl Allergy Nausea Verified 05/22/21 17:48 [From Flexeril] phenylephrine HCl Allergy Tachycardia Verified 05/22/21 17:48 [From Contac-D Cold (PE)] Bee sting Allergy Airway Uncoded 09/29/20 11:57 Tightness Home Meds: Home Meds DULoxetine [Cymbalta] 60 mg PO DAILY 02/09/14 [History] Lisinopril 10 mg PO DAILY 02/09/14 [History] Simvastatin [Zocor] 40 mg PO BEDTIME 02/09/14 [History] rOPINIRole HCl [Requip] 2 mg PO BEDTIME 02/09/14 [History] Pregabalin [Lyrica] 150 mg PO BID 11/30/17 [History] EPINEPHrine [Epipen 2-Bird] 1 injection SQ ASDIRECTED PRN 07/03/20 [History] Insulin Aspart [NovoLOG] 45 units SQ TID 07/03/20 [History] Insulin Degludec [Tresiba] 80 units SQ BEDTIME 09/29/20 [History] metFORMIN HCl [Metformin HCl] 1,000 mg PO BID 09/29/20 [History] Baclofen 10 mg PO TID PRN 05/22/21 [History] oxyCODONE HCl [Oxycodone HCl] 5 - 10 mg PO Q4H PRN 05/22/21 [History] Lactulose 20 gm PO TID #420 ml 05/24/21 [Rx] Past Medical History Cardiovascular History: Reports: High Cholesterol, Hypertension Genitourinary History: Reports: Other (See Below) Other Genitourinary History: URETHRAL STRICTURE Musculoskeletal History: Reports: Back Pain, Chronic Other Musculoskeletal History: back surgery January and May 2021 Psychiatric History: Reports: Depression Endocrine/Metabolic History: Reports: Diabetes, Type II - Infectious Disease History Infectious Disease History: Reports: Chicken Pox, Measles - Past Surgical History Cardiovascular Surgical History: Reports: None GI Surgical History: Reports: Appendectomy, Other (See Below) Other GI Surgeries/Procedures: rectal surgery (cyst) Musculoskeletal Surgical History: Reports: Other (See Below) Other Musculoskeletal Surgeries/Procedures:: BACK SURGERY January of 2021 with replacement of end caps May 2021 Social & Family History - Family History Family Medical History: No Pertinent Family History - Tobacco Use Tobacco Use Status *Q: Never Tobacco User - Caffeine Use Caffeine Use: Reports: Soda - Living Situation & Occupation Living situation: Reports: , with Spouse Occupation: Employed ED ROS GENERAL - Review of Systems Review Of Systems: See Below Constitutional: Denies: Fever, Chills, Diaphoresis HEENT: Denies: Throat Pain Respiratory: Reports: Cough (occasional). Denies: Shortness of Breath, Wheezing, Pleuritic Chest Pain, Sputum Cardiovascular: Denies: Chest Pain, Lightheadedness, Orthopnea Endocrine: Reports: No Symptoms GI/Abdominal: Denies: Abdominal Pain, Constipation, Diarrhea, Nausea, Vomiting : Reports: Other (bilateral testicular pain). Denies: Discharge, Dysuria, Flank Pain Musculoskeletal: Reports: Back Pain Skin: Reports: No Symptoms Neurological: Reports: No Symptoms Psychiatric: Reports: No Symptoms Hematologic/Lymphatic: Reports: No Symptoms Immunologic: Reports: No Symptoms ED EXAM, GENERAL - Physical Exam Exam: See Below Exam Limited By: No Limitations General Appearance: Alert, WD/WN, Mild Distress Ears: Normal External Exam, Hearing Grossly Normal Nose: Normal Inspection Throat/Mouth: Normal Voice, No Airway Compromise Head: Atraumatic, Normocephalic Neck: Normal Inspection, Supple, Non-Tender Respiratory/Chest: No Respiratory Distress, Lungs Clear, Normal Breath Sounds, Chest Non-Tender Cardiovascular: Regular Rate, Rhythm, No Gallop, No Murmur, No Rub GI/Abdominal: Normal Bowel Sounds, Soft, Non-Tender (Male) Exam: Cremasteric Reflex (intact), Testicular Tenderness (L), Testicular Tenderness (R). No: Hernia, Inguinal Lymphadenopathy, Penile Lesions, Scrotal Swelling, Scrotum Tenderness (L), Scrotum Tenderness (R), Urethral Discharge Rectal (Males) Exam: Deferred Back Exam: Vertebral Tenderness Extremities: Normal Inspection, Normal Range of Motion, No Pedal Edema Neurological: Alert, Oriented, Normal Cognition Psychiatric: Normal Affect, Normal Mood Skin Exam: Warm, Dry, Intact, Normal Color Lymphatic: No Adenopathy Course - Vital Signs Last Recorded V/S: Last Vital Signs Temp 97.1 F 07/08/21 11:53 Pulse 68 07/08/21 11:53 Resp 18 07/08/21 11:53 BP 156/80 H 07/08/21 11:53 Pulse Ox 96 07/08/21 11:53 - Orders/Labs/Meds Orders: Active Orders 24 hr Category Date Time Status Lumbar Spine wo Cont [CT] Stat Exams 07/08/21 12:19 Ordered URINALYSIS W/MICROSCOPIC [UA W/MICROSCOPIC] [URIN] Stat Lab 07/08/21 12:08 Ordered - Re-Assessments/Exams Free Text/Narrative Re-Assessment/Exam: This is a 56 year old male that presented to the ED with chronic lower back pain for the past month following a back revision surgery in [place]. Patient states back pain unchanged since June 06. Also reports testicular pain for the past 3 days. Healed surgical site to lower back. Examination of scrotum. Cremasteric reflex intact, no swelling or erythema to scrotum, elevation of scrotum and testicles does not relieve discomfort. A UA was obtained. CT of lumber spine completed. I personally reviewed CT scan of lumbar spine and saw no evidence of acute fracture or deformity. The hardware appears to be intact. These findings were confirmed by radiologist. The UA was negative for blood or infection. Specific gravity elevated indicating possible dehydration. Due to testicular pain being 3 days in nature and intact cremasteric reflex testicular torsion would not be likely. If testicular pain continues possibly would consider ultrasound at some point in time. Plan will be to send patient home. Patient to resume all of his pain medication. Spoke with the patient about staying hydrated and drinking plenty of fluids. He should follow-up as scheduled tomorrow with his surgeon that completed his back surgery. Patient should call [facility] prior to he to travel to state that CT scans of his lumbar spine were completed today. He should follow-up with his primary care provider for continued management of his lower back pain. Departure - Departure Time of Disposition: 13:44 Disposition: Home, Self-Care 01 Condition: Fair Clinical Impression: Dorsalgia of lumbar region, Testicular/scrotal pain - Discharge Information *PRESCRIPTION DRUG MONITORING PROGRAM REVIEWED*: Not Applicable *COPY OF PRESCRIPTION DRUG MONITORING REPORT IN PATIENT CESARIO: Not Applicable Instructions: Chronic Back Pain Referrals: PCP,Unknown [Family Provider] - Additional Instructions: 1. Keep your scheduled appointment with [facility], you may call ahead of time to let them know you received a CT in the emergency department today. 2. Continue taking your pain medications as prescribed. 3. Stay hydrated by drinking plenty of fluids. 4. Your urine analysis showed no signs of infection but evidence of dehydration. 5. Follow-up with your primary care provider for continued symptom management. 6. If your symptoms become more severe follow-up or return to the emergency department. Sepsis Event Note (ED) - Evaluation Sepsis Screening Result: No Definite Risk - Focused Exam Vital Signs: Vital Signs Temp Pulse Resp BP Pulse Ox 07/08/21 11:53 97.1 F 68 18 156/80 H 96 - My Orders Last 24 Hours: My Active Orders 07/08/21 12:08 URINALYSIS W/MICROSCOPIC [UA W/MICROSCOPIC] [URIN] Stat 07/08/21 12:19 Lumbar Spine wo Cont [CT] Stat - Assessment/Plan Last 24 Hours: My Active Orders 07/08/21 12:08 URINALYSIS W/MICROSCOPIC [UA W/MICROSCOPIC] [URIN] Stat 07/08/21 12:19 Lumbar Spine wo Cont [CT] Stat
[2021-07-08] MEDS: Baclofen 10 MG Tab PO STA (14:10)
== END 2021-07-08 14:18 | disposition home or self-care (01) ==
LOC: CC.ED 11:42 → SUPCPDRO 11:42 → CC.ED 14:18
DX: M54.50 Low back pain, unspecified (principal); N50.812 Left testicular pain; N50.811 Right testicular pain; E78.00 Pure hypercholesterolemia, unspecified; I10 Essential (primary) hypertension; E11.9 Type 2 diabetes mellitus without complications; Z88.6 Allergy status to analgesic agent; Z88.8 Allergy status to other drugs, medicaments and biological substances; Z91.030 Bee allergy status; Z79.899 Other long term (current) drug therapy; Z79.4 Long term (current) use of insulin; Z79.84 Long term (current) use of oral hypoglycemic drugs
CPT/HCPCS: 72131; 81001; 99284; A9270

== ENCOUNTER 2022-12-07 16:51 | Emergency (ER) | payer BC, OTHER ==
[2022-12-07 17:16] VITALS: BP 192/76; PULSE 66
[2022-12-07] MEDS ORDERED: Ketorolac 30 MG/ML SDV IM ONE (17:20)
[2022-12-07] MEDS ORDERED: Dexamethasone 4 MG/ML SDV PO STA (17:23)
[2022-12-07] MEDS ORDERED: Dexamethasone 4 MG Tab PO STA (17:34)
[2022-12-07] MEDS ORDERED: Take Home: Amoxicillin/Clavulanate K 875-125 MG Tab, 2 Tab Pack PO ONE (17:36)
[2022-12-07] MEDS ORDERED: Amoxicillin/Clavulanate K 875-125 MG Tab PO STA (17:39)
== END 2022-12-07 17:54 | disposition home or self-care (01) ==
LOC: CC.ED 16:51
DX: M54.16 Radiculopathy, lumbar region (principal); K08.89 Other specified disorders of teeth and supporting structures; I10 Essential (primary) hypertension; E78.00 Pure hypercholesterolemia, unspecified; E11.9 Type 2 diabetes mellitus without complications; Z91.030 Bee allergy status; Z88.8 Allergy status to other drugs, medicaments and biological substances; Z79.4 Long term (current) use of insulin; Z79.899 Other long term (current) drug therapy
CPT/HCPCS: 96372; 99283; A9270; J1885; J8540; 99284

== ENCOUNTER 2024-08-05 23:43 | Emergency (ER) | payer BC, OTHER ==
[2024-08-06] MEDS: Take Home: Cephalexin 500 MG Cap, 6 Cap Pack PO ONE (00:29)
[2024-08-06 01:54] VITALS: BP 117/62; PULSE 79
== END 2024-08-06 00:25 | disposition home or self-care (01) ==
LOC: CC.ED 23:43
DX: S91.105A Unspecified open wound of left lesser toe(s) without damage to nail, initial encounter (principal); L08.9 Local infection of the skin and subcutaneous tissue, unspecified; I10 Essential (primary) hypertension; E78.00 Pure hypercholesterolemia, unspecified; E11.9 Type 2 diabetes mellitus without complications; Z90.49 Acquired absence of other specified parts of digestive tract; Z88.8 Allergy status to other drugs, medicaments and biological substances; Z91.030 Bee allergy status; Z79.4 Long term (current) use of insulin; Z79.84 Long term (current) use of oral hypoglycemic drugs; Z79.899 Other long term (current) drug therapy; X58.XXXA Exposure to other specified factors, initial encounter
CPT/HCPCS: 73630; 99283; A9270